=== PATIENT | male | born 1980 | race Caucasian/White ===

== ENCOUNTER 2021-01-26 10:55 | Emergency (ER) | payer MEDICARE, SELFPAY ==
[2021-01-26 10:56] VITALS: BP 114/72; PULSE 93; RESP 18; TEMP 36.3; O2SAT 99; BMI 29.5
--- NOTE | 2021-01-26 11:12 | RAD_ITS ---
STUDY: X-RAY CHEST REASON FOR EXAM: Male, 40 years old. Cough. TECHNIQUE: Single AP portable view of the chest. COMPARISON: 09/09/2013. FINDINGS: The lungs are clear and expanded. There is no demonstrated pleural abnormality. Normal size heart. Normal mediastinum and audra. Normal visualized pulmonary arteries. Normal visualized aortic arch and descending thoracic aorta. Normal visualized thoracic spine. Normal visualized ribs, clavicles, and shoulders. There is no demonstrated abnormality of the visualized soft tissue structures of the upper abdomen. RAD/Chest 1 View (Portable) IMPRESSION: No acute cardiopulmonary disease or major interval change. Electronically Signed: Geraldo Clements DO at 11:35 EDT Tel [phone], Service support ,
--- NOTE | 2021-01-26 11:20 | EX.ED.VIS.UR ---
HPI HPI - URI History of Present Illness Chief Complaint: Cough Informant: patient Onset/Context/Timing Onset: Days Context: Gradual Onset Timing: Continuous Current Severity: Mild Maximum Severity: Mild Associated Symptoms Associated Symptoms: Positive for Nasal Congestion, Sinus Pressure and Nonproductive cough; Negative for Nausea, Vomiting, Diarrhea, Chest Pain and Hemoptysis Narrative Narrative: 40-year-old male history of asthma and clinical depression. States that he has had a cough and decreased appetite since Wednesday today is day 5. States cough is nonproductive he said chills but no fever. No vomiting or diarrhea mild nausea. No known exposures. He has not been vaccinated for Covid. Denies any hemoptysis. Prior similar symptoms: Yes Recent Illness/Hospitalization: No ROS ROS ED ROS Narrative Cough. Review of Systems ROS Unobtainable: Denies due to encephalopathy Constitutional Constitutional ED: Reports chills; Denies fever(s) Eyes Eyes: Denies change in vision ENT ENT ED: Denies ear pain or sore throat Cardiovascular Cardiovascular: Denies chest pain Respiratory/Chest Respiratory/Chest: Reports cough; Denies dyspnea or sputum Gastrointestinal Gastrointestinal: Reports nausea; Denies abdominal pain, diarrhea or vomiting Genitourinary Genitourinary ED: Denies dysuria Musculoskeletal Musculoskeletal: Denies myalgias Integumentary Denies rash Neurologic Neurologic: Denies headache(s) Psychiatric Psychiatric: Denies depression Endocrine Endocrinology: Denies polyuria Hematologic/Lymphatic Hematologic/Lymphatic: Denies easy bruising Allergic/Immunologic Allergic/Immunologic ED: Denies urticaria PFSH PFSH Medical History no medical history Home Medications bupropion HCl 150 mg PO BID 09/09/13 [History Last Taken Unknown] etodolac 300 mg PO TIDCM #30 capsule 09/09/13 [Rx Last Taken Unknown] paroxetine HCl 20 mg PO BID 09/09/13 [History Last Taken Unknown] temazepam [Restoril] 7.5 mg PO QHS PRN PRN 09/09/13 [History Last Taken Unknown] amoxicillin 500 mg PO TID #30 tab 10/07/14 [Rx Last Taken Unknown] dexamethasone [Decadron] 6 mg PO DAILY #7 tab 01/26/21 [Rx Last Taken Unknown] Allergy/AdvReac Type Severity Reaction Status Date / Time fluoxetine HCl [From Prozac] Allergy Other Verified 01/26/21 10:56 morphine Allergy Other Verified 01/26/21 10:56 albuterol AdvReac Other Verified 01/26/21 10:56 Social History Smoking Status: Never smoker EXAM Physical Exam Narrative Exam Narrative: Well-appearing middle-aged male vital signs stable afebrile. Pulse ox 99% on room air. Exam unremarkable. Nonproductive cough. Const Vital Signs: 01/26/21 10:56 01/26/21 11:15 Temperature 97.4 F L Temperature Source Temporal Pulse Rate 93 Respiratory Rate 18 Respiratory Effort Normal Non-Labored Respiratory Depth Normal Respiratory Pattern Normal Blood Pressure 114/72 Blood Pressure Mean 86 Pulse Ox 99 Oxygen Delivery Method Room Air Positive well nourished and well developed; Negative for obese, cachectic or contractures General Appearance ED: well developed and NAD; Negative for cachectic, contractures, cyanotic or diaphoretic Nutritional Appearance: Negative for cachectic or obese HEENT Reports moist mucous membranes normocephalic and atraumatic; Negative for scalp tenderness Face and Sinus: Negative for sinus tenderness or facial tenderness External Ear: external ears normal Eyes PERRL and EOMs intact bilaterally Neck no lymphadenopathy, supple, no meningeal signs and no JVD General: Negative for anterior neck swelling or lymphadenopathy Resp normal respiratory effort and clear to auscultation bilaterally Auscultation: Negative for rales, rhonchi or wheezes Cardio S1 normal heart sound, S2 normal heart sound and no murmurs Rate: regular rate Rhythm: regular rhythm GI non-tender, non-distended and no masses Inspection: Negative for abdominal distention Auscultation: normoactive bowel sounds Palpation: soft; Negative for tender or guarding Back/Spine no CVA tenderness General Back: Negative for CVA tenderness Cervical Spine: Negative for cervical spine tenderness Extremity normal to inspection General Extremety ED: Negative for cyanosis or tenderness General Extremity: Negative for cyanosis Neuro oriented x3 Sensorium / Orientation: alert, oriented to person, oriented to place and oriented to time; Negative for orientation impaired, lethargic or stuporous Motor Exam: strength 5/5 throughout Psych mental status grossly normal Skin Lesions: no lesions Rashes: no rashes MDM MDM MDM Narrative Medical decision making narrative: Middle-age male no acute distress vital signs stable afebrile. Exam benign. Lungs are clear. Dry cough. Chest x-ray and Covid test being obtained. Repeat exam at 11:51 AM unchanged. Discussed with patient test results. Lab Data Attestation: I reviewed the patient's lab results. Lab results narrative: Covid test positive. Rapid antigen. Radiography Diagnostic Testing: Radiology Impression Chest X-Ray 01/26/21 11:12 IMPRESSION: No acute cardiopulmonary disease or major interval change. Electronically Signed: Geraldo Clements at 11:35 EDT Tel [phone], Service support , Chest x-ray portable 1 view interpreted by myself and the radiologist shows no acute abnormality. Normal cardiac silhouette mediastinum. No infiltrates. Discharge Plan Triage Chief Complaint: Cough ED Provider: Vernon Fan Dx/Rx/DC Orders Clinical Impression: COVID-19 Instructions: Human Coronaviruses Prescriptions: New dexamethasone [Decadron] 6 mg tablet 6 mg PO DAILY Qty: 7 RF: 0 No Action bupropion HCl 150 MG tablet sustained-release 12 hr 150 mg PO BID RF: 0 temazepam [Restoril] 7.5 MG capsule 7.5 mg PO QHS PRN PRN (Reason: Insomnia) RF: 0 paroxetine HCl 20 MG tablet 20 mg PO BID RF: 0 etodolac 300 MG capsule 300 mg PO TIDCM Qty: 30 RF: 0 amoxicillin 500 MG tablet 500 mg PO TID Qty: 30 RF: 0 Primary Care Provider: Abraham Chen Referrals: Abraham Chen MD [Primary Care Provider] - 10-14 Days if not better Activity Restrictions/Additional Instructions: Follow-up with your doctor if you are not improving. Return emergency department if you are feeling a lot worse. Decadron daily to help decrease inflammation in your lungs. Fluids and rest. Tylenol for any fever. Disposition Disposition: Home, Self Care
== END 2021-01-26 12:15 | disposition home or self-care (01) ==
LOC: ED 12:11
PROVIDERS: Emergency Provider Emergency Medicine; PCP Family Medicine
DX: U07.1 COVID-19 (principal); J45.909 Unspecified asthma, uncomplicated; F32.9 Major depressive disorder, single episode, unspecified; Z79.899 Other long term (current) drug therapy
CPT/HCPCS: 71045; 87426; 99282

== ENCOUNTER 2021-01-30 06:02 | Emergency (ER) | payer MEDICARE, SELFPAY ==
[2021-01-30 06:03] VITALS: BP 118/69; PULSE 83; RESP 16; TEMP 37.1; O2SAT 99; BMI 27.6
--- NOTE | 2021-01-30 06:18 | EKG12_ITS ---
Test Reason : SOB Blood Pressure : / mmHG Vent. Rate : 096 BPM Atrial Rate : 096 BPM P-R Int : 138 ms QRS Dur : 086 ms QT Int : 338 ms P-R-T Axes : 039 031 001 degrees QTc Int : 427 ms Normal sinus rhythm Normal ECG Confirmed by KRISTIE SWAIN, ADÁN ([id number]), purchase request editor DANETTE KAMARA ([id number]) on 02/03/2021 7:53:34 AM Referred By: PL Confirmed By:ADÁN FLOWERS MD
--- NOTE | 2021-01-30 06:18 | RAD_ITS ---
STUDY: X-RAY CHEST REASON FOR EXAM: Male, 40 years old. Cough, covid TECHNIQUE: Portable, upright, AP chest radiograph COMPARISON: 01/26/2021 FINDINGS: Bilateral perihilar and infrahilar patchy opacities. There is no demonstrated pleural abnormality. Normal size heart. Normal mediastinum and audra. Normal visualized pulmonary arteries. Normal visualized aortic arch and descending thoracic aorta. Normal visualized thoracic spine. Normal visualized ribs, clavicles, and shoulders. There is no demonstrated abnormality of the visualized soft tissue structures of the upper abdomen. RAD/Chest 1 View (Portable) IMPRESSION: Multifocal pneumonia. Electronically Signed: Castro Cortez MD at 6:41 EDT Tel , Service support ,
--- NOTE | 2021-01-30 06:21 | EX.ED.DYSGE1 ---
HPI History of Present Illness Chief Complaint: Dizziness Informant: patient Narrative Narrative: Patient presents with concerns of just not feeling well with Covid. His symptoms started last Wednesday so he has had symptoms for about 7 or 8 days. He was tested positive on Wednesday. He states he started with congestion and dry cough. He still has the dry cough. He states when he coughs hard he will get nauseated and even get lightheaded. He thinks he passed out once with coughing. He has no sputum production. No hemoptysis. No leg pain or swelling. He states he cannot eat. When I asked him what he means by this is that he does not have an appetite. He is able to eat and drink he is just not interested. He also states that he just has no energy at all and feels tired and wants to sleep all the time. He is not a smoker. He did not get any immunizations. No chronic medical conditions. He does have a history of bipolar and asthma but has not been on meds for this for a long time. Current medication: Questionable steroid through his family doctor for Covid Allergies to Prozac, morphine and albuterol No recent surgeries Non-smoker, lives with family [facility] Medical History Asthma Home Medications benzonatate 200 mg PO TID PRN PRN #20 cap 01/30/21 [Rx Last Taken Unknown] ondansetron 4 mg PO Q8H PRN #10 tab 01/30/21 [Rx Last Taken Unknown] Allergy/AdvReac Type Severity Reaction Status Date / Time fluoxetine HCl [From Prozac] Allergy Other Verified 01/30/21 06:05 morphine Allergy Other Verified 01/30/21 06:05 albuterol AdvReac Other Verified 01/30/21 06:05 Social History Smoking Status: Never smoker ROS [facility] ED Constitutional Constitutional ED: Reports chills and fever(s); Denies weight loss Eyes Eyes: Denies blurry vision or change in vision ENT ENT ED: Reports rhinorrhea and other Details: Mild nasal congestion. ; Denies sore throat Cardiovascular Cardiovascular: Denies chest pain, orthopnea or palpitations Respiratory/Chest Respiratory/Chest: Reports cough; Denies dyspnea, dyspnea on exertion, orthopnea or sputum Gastrointestinal Gastrointestinal: Reports nausea; Denies abdominal pain, constipation, diarrhea, melena or vomiting Genitourinary Genitourinary ED: Denies dysuria or hematuria Musculoskeletal Musculoskeletal: Reports myalgias Integumentary Denies rash Neurologic Neurologic: Denies headache(s), paresthesias or weakness Psychiatric Psychiatric: Reports other Details: History of bipolar but not taking meds for quite some time. ; Denies anxiety or depression Endocrine Endocrinology: Denies polydipsia or polyuria Allergic/Immunologic Allergic/Immunologic ED: Denies urticaria EXAM Physical Exam Const Vital Signs: 01/30/21 06:03 01/30/21 06:13 Temperature 98.8 F Temperature Source Oral Pulse Rate 83 Respiratory Rate 16 Respiratory Effort Normal Respiratory Pattern Normal Blood Pressure 118/69 Blood Pressure Mean 85 Pulse Ox 99 Oxygen Delivery Method Room Air Patient looks comfortable. Heart rate, respiratory rate and saturations are normal. Breathing looks unlabored. He is nontoxic in appearance. Positive well nourished and well developed General Appearance ED: well developed and NAD; Negative for pallor HEENT Reports dry mucous membranes HEENT Narrative: Mildly dry mucous membranes. Mouth ED: Yes dry mucous membranes Mouth: dry mucous membranes Eyes PERRL and EOMs intact bilaterally Neck no lymphadenopathy and no JVD Resp normal respiratory effort and clear to auscultation bilaterally Effort and Inspection: Negative for pain with movement Auscultation: Negative for rales, rhonchi or wheezes Cardio regular rate, regular rhythm and no murmurs GI normal to inspection, nondistended, normoactive bowel sounds and non-tender Palpation: soft Back/Spine no CVA tenderness Extremity normal to inspection General Extremety ED: Negative for edema or tenderness General Extremity: Negative for edema Neuro oriented x3 Sensorium / Orientation: alert Psych mental status grossly normal Skin no rashes or lesions noted General Skin Exam: Negative for jaundice or pallor MDM MDM MDM Narrative Medical decision making narrative: Chest x-ray was consistent with Covid. We walked the patient and his saturations bounced between 94 to 95% while walking showed no hypoxia. EKG was normal. Patient is concerned that his anxiety might also be contributing to this. I explained that that is possible but he also has a significant illness and I expect him to feel poorly with that. I can help with his intermittent nausea and with the cough. He does not meet criteria for monoclonal antibody therapy. We discussed reasons to return. He can also get an O2 saturation monitor. If he is dropping below 90% he should return. We may be able to get him oxygen at that point if needed. Radiography Diagnostic Testing: Radiology Impression Chest X-Ray 01/30/21 06:18 IMPRESSION: Multifocal pneumonia. Electronically Signed: Castro Cortez MD at 6:41 EDT Tel , Service support , Discharge Plan Triage Chief Complaint: Dizziness Other Complaint: Weakness ED Provider: Ayan Cali Dx/Rx/DC Orders Clinical Impression: COVID-19 Prescriptions: New ondansetron 4 mg tablet,disintegrating 4 mg PO Q8H PRN (Reason: nausea and vomiting) Qty: 10 RF: 0 benzonatate [benzonatate] 100 MG capsule 200 mg PO TID PRN PRN (Reason: Cough) Qty: 20 RF: 0 Primary Care Provider: Abraham Chen Referrals: Abraham Chen MD [Primary Care Provider] - 3-5 Days if not improving Disposition Disposition: Home, Self Care
[2021-01-30 06:53] VITALS: O2SAT 96
--- NOTE | 2021-01-30 06:54 | ED.RN ---
PT STOPS WALKING SEVERAL TIMES TO COUGH AND SPIT PLEGHM
[2021-01-30 07:29] VITALS: BP 122/68; PULSE 82; RESP 18; TEMP 36.9; O2SAT 96
== END 2021-01-30 07:31 | disposition home or self-care (01) ==
PROVIDERS: Emergency Provider Emergency Medicine; PCP Family Medicine
DX: U07.1 COVID-19 (principal)
CPT/HCPCS: 71045; 93005; 99282